=== PATIENT | female | born 1985 | race Caucasian/White ===

== ENCOUNTER 2019-05-12 15:22 | Emergency (ER) | payer MEDICARE ==
--- NOTE | 2019-05-12 17:16 | EDM.PDOCBH ---
ED HPI GENERAL MEDICAL PROBLEM - General Chief Complaint: Behavioral/Psych Stated Complaint: THOUGHTS OF HURTING SELF Time Seen by Provider: 05/12/19 16:50 Source of Information: Reports: Patient History Limitations: Reports: No Limitations - History of Present Illness INITIAL COMMENTS - FREE TEXT/NARRATIVE: Erin is a 34 year old w female who presents to [facility] ED with depressed moods, thoughts of self harm without plan, proximity or lethality. She cannont recall an epidsode of belen or hypomania, and no prior psychiatric hospitalizations. She reports mood swings, social isolation, some apathy, lowered frustration tolerance, and hopelessness. There is no reported hypersomnia, restlessness, racing thoughts, crying spells, or outbursts. She has been sexually active a few times this winter, and recent depoProvera about 3 mos ago. She denies substance abuse of ETOHism. She has a remote hx of BPAD and ADHD since childhood , and is currently on multiple psychotropic meds. She relocated to [facility] from [place], [place] during March 2019 o live with her brother and sister in law. She has been on SSI for years, reports prior childhood treatment for suspected BPAD, and noncompliance with current meds. - Related Data Allergies Allergy/AdvReac Type Severity Reaction Status Date / Time Penicillins Allergy Severe Airway Verified 05/12/19 15:48 Tightness Sulfa (Sulfonamide Allergy Unknown Cannot Verified 05/12/19 15:49 Antibiotics) Remember aspirin Allergy Airway Verified 05/12/19 15:48 Tightness ciprofloxacin [From Cipro] Allergy Airway Verified 05/12/19 15:48 Tightness Home Meds: Home Meds Divalproex Sodium 2,000 mg PO BEDTIME 05/12/19 [History] QUEtiapine [SEROquel] 200 mg PO BEDTIME 05/12/19 [History] Topiramate 400 mg PO 05/12/19 [History] Past Medical History Musculoskeletal History: Reports: Fracture (clavicle) - Past Surgical History HEENT Surgical History: Reports: Myringotomy w Tube(s) Social & Family History - Tobacco Use Smoking Status *Q: Former Smoker Used Tobacco, but Quit: Yes Month/Year Tobacco Last Used: unkown - Caffeine Use Caffeine Use: Reports: Soda - Recreational Drug Use Recreational Drug Use: No ED ROS GENERAL - Review of Systems Review Of Systems: See Below Constitutional: Reports: Malaise HEENT: Reports: No Symptoms Respiratory: Reports: No Symptoms Cardiovascular: Reports: No Symptoms Endocrine: Reports: Fatigue GI/Abdominal: Reports: Abdominal Pain (aggravated with exercise, suspected association with wt loss and redundant skin) : Reports: No Symptoms Musculoskeletal: Reports: No Symptoms Skin: Reports: Rash (susceptible to rashes in groin) Neurological: Reports: No Symptoms Psychiatric: Reports: Depression, Mood Lability Hematologic/Lymphatic: Reports: No Symptoms Immunologic: Reports: No Symptoms ED EXAM, BEHAVIORAL HEALTH - Physical Exam Exam: See Below Exam Limited By: No Limitations General Appearance: Alert, WD/WN, No Apparent Distress Eye Exam: Bilateral Eye: EOMI, Normal Inspection, PERRL Ears: Normal External Exam Nose: Normal Inspection Throat/Mouth: Normal Inspection, Normal Oropharynx Head: Normocephalic Neck: Normal Inspection Respiratory/Chest: Lungs Clear Cardiovascular: Regular Rate, Rhythm Back Exam: Normal Inspection Extremities: Normal Inspection Neurological: Alert, CN II-XII Intact, Normal Cognition, Normal Gait, No Motor/ Sensory Deficits, Oriented x 3 Psychiatric: Alert, Normal Cognition, Oriented, Depressed Mood Skin Exam: Warm, Dry, Intact, Normal color, No rash COURSE, BEHAVIORAL HEALTH COMP - Course Vital Signs: Last Vital Signs Temp 36.6 C 05/12/19 15:53 Pulse 69 05/12/19 15:53 Resp 18 05/12/19 15:53 BP 108/72 05/12/19 15:53 Pulse Ox 100 05/12/19 15:53 Departure - Departure Time of Disposition: 17:29 Disposition: Home, Self-Care 01 Condition: Fair Clinical Impression: Depressive disorder - Discharge Information *PRESCRIPTION DRUG MONITORING PROGRAM REVIEWED*: Not Applicable *COPY OF PRESCRIPTION DRUG MONITORING REPORT IN PATIENT ANGEL: Not Applicable Referrals: PCP,None [Primary Care Provider] - Sepsis Event Note - Evaluation Sepsis Screening Result: No Definite Risk - Focused Exam Vital Signs: Vital Signs Temp Pulse Resp BP Pulse Ox 05/12/19 15:53 36.6 C 69 18 108/72 100 Date Exam was Performed: 05/12/19 Time Exam was Performed: 17:09 - Problem List & Annotations (1) Depressive disorder SNOMED Code(s): 38875591 Code(s): F32.9 - MAJOR DEPRESSIVE DISORDER, SINGLE EPISODE, UNSPECIFIED Status: Acute Current Visit: Yes Annotation/Comment:: Mood disorder without hypomanic features or fabio suicidal ideation. She needs to establish with a PCP and acquire referrals to MH professionals to sort out needs. She wishes to be a mother one day, and was advised guidance from an [employer] regarding compatibility of psychotropic meds and . An appointment with a PCP was secured for tomorrrow. - Problem List Review Problem List Initiated/Reviewed/Updated: Yes - Assessment/Plan Plan: Follow up with PCP.
== END 2019-05-12 17:45 | disposition home or self-care (01) ==
LOC: FB.ED 15:22
DX: F32.9 Major depressive disorder, single episode, unspecified (principal); Z87.891 Personal history of nicotine dependence; Z88.0 Allergy status to penicillin; Z88.2 Allergy status to sulfonamides; Z88.8 Allergy status to other drugs, medicaments and biological substances; Z88.1 Allergy status to other antibiotic agents; Z79.899 Other long term (current) drug therapy
CPT/HCPCS: 99283

== ENCOUNTER 2019-06-13 11:24 | Emergency (ER) | payer MEDICARE ==
--- NOTE | 2019-06-13 12:22 | EDM.PDOC ---
ED HPI GENERAL MEDICAL PROBLEM - General Chief Complaint: Lower Extremity Injury/Pain Stated Complaint: PAIN IN L LEG Time Seen by Provider: 06/13/19 11:45 Source of Information: Reports: Patient, Old Records History Limitations: Reports: No Limitations - History of Present Illness INITIAL COMMENTS - FREE TEXT/NARRATIVE: Erin comes in for inspection of L knee following a fall at work 2 days ago. She slipped on a wet floor, landing onto anterior L knee, with residual pain, mild swelling, and conserns for varicose veins that are tender. There is a PMH of obesity, varicose veins in both legs, but no hx of DVT. Shehas taken Tylenol for sxs relief, and applying cool packs. 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 Left Lower Leg Pain Score (Numeric/FACES): 8 - Related Data Allergies Allergy/AdvReac Type Severity Reaction Status Date / Time Penicillins Allergy Severe Shortness Verified 06/13/19 11:36 of Breath Sulfa (Sulfonamide Allergy Unknown Cannot Verified 06/13/19 11:36 Antibiotics) Remember aspirin Allergy Shortness Verified 06/13/19 11:36 of Breath ciprofloxacin [From Cipro] Allergy Anaphylactic Verified 06/13/19 11:36 Shock Home Meds: Home Meds Divalproex Sodium 2,000 mg PO BEDTIME 05/12/19 [History] QUEtiapine [SEROquel] 100 mg PO BEDTIME 05/12/19 [History] Topiramate 100 mg PO BEDTIME 05/12/19 [History] Acetaminophen [Tylenol Extra Strength] 1,500 mg PO DAILY PRN 06/09/19 [History] Mupirocin Oint [Bactroban Oint] 1 applic TOP TID 06/09/19 [History] Past Medical History HEENT History: Reports: None Cardiovascular History: Reports: None Respiratory History: Reports: None Gastrointestinal History: Reports: None Genitourinary History: Reports: None 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: Reports: None Musculoskeletal History: Reports: Fracture Neurological History: Reports: None Psychiatric History: Reports: Bipolar Endocrine/Metabolic History: Reports: Obesity/BMI 30+ Hematologic History: Reports: None Immunologic History: Reports: None Oncologic (Cancer) History: Reports: None Dermatologic History: Reports: None - Past Surgical History Head Surgeries/Procedures: Reports: None HEENT Surgical History: Reports: Myringotomy w Tube(s) Other HEENT Surgeries/Procedures: Tubes placed in ears; collar bone repair Cardiovascular Surgical History: Reports: None Respiratory Surgical History: Reports: None GI Surgical History: Reports: None Female Surgical History: Reports: None Endocrine Surgical History: Reports: None Neurological Surgical History: Reports: None Musculoskeletal Surgical History: Reports: None Oncologic Surgical History: Reports: None Dermatological Surgical History: Reports: None Social & Family History - Tobacco Use Smoking Status *Q: Current Status Unknown Second Hand Smoke Exposure: No - Caffeine Use Caffeine Use: Reports: Coffee - Recreational Drug Use Recreational Drug Use: No Review of Systems - Review of Systems Review Of Systems: Comprehensive ROS is negative, except as noted in HPI. ED EXAM, GENERAL - Physical Exam Exam: See Below Exam Limited By: No Limitations General Appearance: Alert, WD/WN, No Apparent Distress, Obese Head: Atraumatic, Normocephalic Neck: Normal Inspection, Supple, Non-Tender, Full Range of Motion Respiratory/Chest: Lungs Clear, Chest Non-Tender Cardiovascular: Regular Rate, Rhythm, No Murmur Back Exam: Normal Inspection Extremities: Leg Pain (L leg: no joint line tenderness, effusion, or laxity to maneuver. There is some ecchymoses anterior with some infrapatellar edema overlying the tibial tubercle; limited tenderness of the lesser saphenous v; no tenderness of greater saphenous v; FROM; no dependent edema) Neurological: Alert, Oriented, CN II-XII Intact Psychiatric: Normal Affect, Normal Mood Skin Exam: Warm, Dry, Intact, Ecchymosis Lymphatic: No Adenopathy Course - Vital Signs Text/Narrative:: No meds were dispensed or administered during ED visit. Last Recorded V/S: Last Vital Signs Temp 36.8 C 06/13/19 11:40 Pulse 75 06/13/19 11:40 Resp 16 06/13/19 11:40 BP 110/58 L 06/13/19 11:40 Pulse Ox 100 06/13/19 11:40 Departure - Departure Time of Disposition: 12:25 Disposition: Home, Self-Care 01 Condition: Fair Clinical Impression: Contusion of knee - Discharge Information *PRESCRIPTION DRUG MONITORING PROGRAM REVIEWED*: Not Applicable *COPY OF PRESCRIPTION DRUG MONITORING REPORT IN PATIENT ANGEL: Not Applicable Referrals: Gretel Butler PA-C [Primary Care Provider] - Sepsis Event Note - Evaluation Sepsis Screening Result: No Definite Risk - Focused Exam Vital Signs: Vital Signs Temp Pulse Resp BP Pulse Ox 06/13/19 11:40 36.8 C 75 16 110/58 L 100 Date Exam was Performed: 06/13/19 Time Exam was Performed: 12:16 - Problem List & Annotations (1) Contusion of knee SNOMED Code(s): 85265697 Code(s): S80.00XA - CONTUSION OF UNSPECIFIED KNEE, INITIAL ENCOUNTER Status : Acute Current Visit: Yes Annotation/Comment:: RICE, NSAIDs and tyrone wrap are suggested. A note for employer was provided. - Problem List Review Problem List Initiated/Reviewed/Updated: Yes - Assessment/Plan Plan: Follow up with PCP if needed.
== END 2019-06-13 12:31 | disposition home or self-care (01) ==
LOC: FB.ED 11:24
DX: S80.02XA Contusion of left knee, initial encounter (principal); F31.9 Bipolar disorder, unspecified; E66.9 Obesity, unspecified; Z79.899 Other long term (current) drug therapy; Z88.0 Allergy status to penicillin; Z88.2 Allergy status to sulfonamides; Z88.8 Allergy status to other drugs, medicaments and biological substances; Z88.1 Allergy status to other antibiotic agents; W01.0XXA Fall on same level from slipping, tripping and stumbling without subsequent striking against object, initial encounter; Y92.89 Other specified places as the place of occurrence of the external cause; Y99.0 Civilian activity done for income or pay
CPT/HCPCS: 99282; 99283